=== PATIENT | male | born 1960 | race Caucasian/White ===

== ENCOUNTER 2017-02-10 11:18 | Day surgery (SDC) | payer BC ==
[~2017-02-10] VITALS: Ht 177.8 cm; Wt 74.5 kg
[2017-02-10] MEDS ORDERED: LIDOCAINE 1%, 2ML ONE (11:40)
[2017-02-10 11:41] VITALS: BP 151/91
[2017-02-10] MEDS ORDERED: LACTATED RINGERS 1,000 ML IV SCH (11:41)
[2017-02-10] MEDS ORDERED: LIDOCAINE/PF 1%, 30ML ONE (11:55)
[2017-02-10] MEDS ORDERED: ROPIvacaine/PF 0.5%, 30 ML ONE (11:55)
[2017-02-10] MEDS ORDERED: LIDOCAINE 1%, 2ML SQ PRN (12:00)
[2017-02-10] MEDS ORDERED: TUMERIC PO (12:07)
[2017-02-10] MEDS ORDERED: MV,M1TAB4 PO (12:07)
[2017-02-10] MEDS ORDERED: MIDAZOLAM 1 MG/ML, 2ML ONE (12:13)
[2017-02-10] MEDS ORDERED: FENTANYL PF 100 MCG/2ML ONE ×2 (12:13→13:39)
[2017-02-10] MEDS ORDERED: PROPOFOL 10 MG/ML, 20ML ONE (12:35)
[2017-02-10] MEDS ORDERED: CEFAZOLIN 1,000 MG ONE (12:35)
[2017-02-10] MEDS ORDERED: ONDANSETRON 2MG/ML, 2ML ONE (12:35)
[2017-02-10] MEDS ORDERED: DEXAMETHASONE 4 MG/ML, 1ML ONE (12:35)
[2017-02-10] MEDS ORDERED: ACETAMINOPHEN 325 MG TABLET PO PRN (13:00)
[2017-02-10] MEDS ORDERED: OXYcodone 5 MG/5 ML ORAL.SOL UDC PO PRN (13:00)
[2017-02-10] MEDS ORDERED: HYDROmorphone 1 MG/ML, 1ML IV PRN (13:00)
[2017-02-10] MEDS ORDERED: PROMETHAZINE 25 MG/ML, 1ML IV PRN (13:00)
[2017-02-10] MEDS ORDERED: OXYcodone 5 MG/5 ML ORAL.SOL UDC ONE (13:39)
[2017-02-10] MEDS ORDERED: ACETAMINOPHEN 650 MG/20.3 ML UDC ONE (13:39)
[2017-02-10] MEDS: FENTANYL PF 100 MCG/2ML IV PRN ×2 (13:43→13:54)
== END 2017-02-10 15:15 | disposition home or self-care (01) ==
LOC: OUT 11:18
PROVIDERS: ATTEND Orthopaedic Surgery
DX: S83.241A Other tear of medial meniscus, current injury, right knee, initial encounter (principal); S83.271A Complex tear of lateral meniscus, current injury, right knee, initial encounter; M94.261 Chondromalacia, right knee; M65.861 Other synovitis and tenosynovitis, right lower leg; Z88.5 Allergy status to narcotic agent; X58.XXXA Exposure to other specified factors, initial encounter; Y93.89 Activity, other specified; Y92.89 Other specified places as the place of occurrence of the external cause; Y99.8 Other external cause status
CPT/HCPCS: 29880; J0690; J1100; J2250; J2405; J2704; J2795; J3010; J3490; J7120